=== PATIENT | male | born 1940 ===

== ENCOUNTER 2020-07-18 13:23 | Inpatient (IN) | payer MEDICARE, BC ==
[~2020-07-18] VITALS: Ht 175.3 cm; Wt 79.4 kg
[~2020-07-18 13:23] MED LIST: CEPH500C2 PO
[2020-07-18 15:35] VITALS: BP 134/70
--- NOTE | 2020-07-18 15:57 | NUR ---
Received patient at 1535 via stretcher with 2 EMT in stable condition. AOx4. no complaint of pain/discomfort. Patient DX: S/P Lumbar decompression by MD Otto 07/14. Continent on bowel and bladder. Patient complaint of right lower leg numbness happen after surgery. Patient on pain management PRN. tolerated well. Original dressing noted. Patient red dry scab noted at the back, slight sacrum redness noted. Patient on zguard for skin protection. not in distress. Patient aware of the rehab program. will continue monitor
[2020-07-18] MEDS ORDERED: AMIO200T4 PO (16:14)
[2020-07-18] MEDS ORDERED: TRAM50TA2 PO (16:28)
[2020-07-18] MEDS ORDERED: ATOR80TA PO (16:28)
[2020-07-18] MEDS ORDERED: LEVO200T9 PO (16:28)
[2020-07-18] MEDS ORDERED: EZET10TA15 PO (16:28)
[2020-07-18] MEDS ORDERED: METO25TA6 PO (16:28)
[2020-07-18] MEDS ORDERED: MULT-1168 PO (16:28)
[2020-07-18] MEDS ORDERED: FURO20TA4 PO (16:28)
[2020-07-18] MEDS ORDERED: POTA20PA40 PO (16:28)
[2020-07-18] MEDS ORDERED: OXYC1TAB12 PO (16:28)
[2020-07-18] MEDS ORDERED: CYAN1TAB17 PO (16:28)
[2020-07-18] MEDS ORDERED: PANT40TA49 PO (16:28)
[2020-07-18] MEDS ORDERED: DILT180C66 PO (16:28)
[2020-07-18] MEDS ORDERED: GABA-532 PO (16:28)
[2020-07-18] MEDS ORDERED: DOCU100C36 PO (16:28)
[2020-07-18] MEDS: ATORVASTATIN 40 MG TABLET PO SCH (20:24)
[2020-07-18 21:08] VITALS: BP 114/63
--- NOTE | 2020-07-19 03:53 | NUR ---
Awake alert and oriented x4 New admit with diagnosis of S/P lumbar decompression with Dr Otto from [facility]. VSS. Fall precautions maintained. Denies any pain at this time. Continent of bowel and bladder. Needs attended. Back incision clean dry and intact. Call zaragoza within reach. Due meds given. Tolerated well. Will monitor patient.
[2020-07-19 04:55] VITALS: BP 100/44
[2020-07-19] MEDS: PANTOPRAZOLE SODIUM 40 MG TABLET.DR PO SCH (06:10)
[2020-07-19] MEDS: LEVOTHYROXINE SODIUM 200 MCG TABLET PO SCH (06:11)
--- NOTE | 2020-07-19 06:43 | NUR ---
End of shift notes: Quiet night. No acute distress noted. VSS. Repositioned. Continent of bowel and bladder but get also have some periods of incontinence. Kept dry. Denies any pain nor any discomfort. Back dressing intact. 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 Will monitor patient.
[2020-07-19 08:00] VITALS: BP 111/58
[2020-07-19] MEDS: GABAPENTIN 100 MG CAPSULE PO SCH ×3 (08:48→16:52)
[2020-07-19] MEDS: MULTIVITAMINS,THERAPEUTIC TABLET PO SCH (08:48)
[2020-07-19] MEDS: EZETIMIBE 10 MG TABLET PO SCH (08:48)
[2020-07-19] MEDS: CEphaleXIN 500 MG CAPSULE PO SCH ×3 (08:48→16:52)
[2020-07-19] MEDS: DILTIAZEM HCL CD 120 MG CAP.SR.24H PO SCH ×2 (08:49→21:34)
[2020-07-19] MEDS: FUROSEMIDE 20 MG TABLET PO SCH (08:49)
[2020-07-19] MEDS: DOCUSATE SODIUM 100 MG CAPSULE PO SCH ×2 (08:49→16:51)
[2020-07-19] MEDS: METOPROLOL TARTRATE 25 MG TABLET PO SCH ×2 (08:50→16:52)
[2020-07-19] MEDS ORDERED: AMIODARONE HCL 200 MG TABLET PO SCH (09:00)
[2020-07-19] MEDS ORDERED: POTASSIUM CHLORIDE 20 MEQ POWDER PACKET PO SCH (09:00)
--- NOTE | 2020-07-19 12:12 | NUR ---
WOUND CARE CONSULT: PT PRESENTS WITH SURGICAL DRESSINGS TO BACK WHICH ARE DRY AND INTACT. RECOMMENDATIONS MADE FOR SKIN PROTECTION. DISCUSSED WITH NURSING STAFF. PT STATES WILL FOLLOW UP WITH HIS SURGEON. WILL SEE PRN. STEVENS IN AGREEMENT WITH PLAN OF CARE. Addendum: 07/19/20 at 1213 by RUTHIE HERNANDEZ RN Amended: Links added.
--- NOTE | 2020-07-19 12:14 | NUR ---
Family Contact: SW called the pts , Jenise ([phone]), and left a voicemail stating that she would like to discuss the pts treatment plan.
[2020-07-19] MEDS ORDERED: Z GUARD REMEDY PASTE 57 GM TUBE TOP PRN (12:15)
--- NOTE | 2020-07-19 12:15 | NUR ---
Family Contact: SW called the pts daughter, Jenise Hays ([phone]), and left a voicemail stating that she would like to discuss the pts treatment plan.
--- NOTE | 2020-07-19 12:16 | NUR ---
Senior It Engineer Note: SW asked the pt if he would need any resoruces and the pt refused resources and stated that his family can take care of him. transfer worker will continue to remain available to patient and provide ongoing supportive counseling and assess for any psychosocial needs. transfer worker will encourage patient to comply with ARU goals of care.
[2020-07-19] MEDS ORDERED: MISCELLANEOUS MED XX PRN (12:30)
[2020-07-19] MEDS ORDERED: OXYCODONE/APAP 5-325 MG TABLET PO PRN (12:45)
[2020-07-19] MEDS: TRAMADOL HCL 50 MG TABLET PO PRN ×2 (14:20→22:57)
[2020-07-19 16:01] VITALS: BP 128/66
--- NOTE | 2020-07-19 18:04 | NUR ---
Patient started therapy today. Tramadol 50mg PRN post therapy given. Patient assisted transfer from wheelchair to bed. tolerated well. Remove original dressing on back surgery as per MD Otto order. Cover with xeroform on midback surgery and cover with steri strips on right side lower back. Patient not in distress. Patient seen and examined by wound nurse. Continue off loading heels for circulation. Patient ongoing DVT pump for prophylaxis. will continue monitor
[2020-07-19 20:19] VITALS: BP 114/63
[2020-07-19] MEDS: ATORVASTATIN 40 MG TABLET PO SCH (21:35)
--- NOTE | 2020-07-19 22:47 | NUR ---
awake alert and oriented x4 needs attended. VSS. Tolerated po meds well. voiding freely. kept comfortable. medicated for pain as ordered. will monitor for relief.voiding well in the urinal.
[2020-07-20 04:57] VITALS: BP 135/70
[2020-07-20] MEDS: PANTOPRAZOLE SODIUM 40 MG TABLET.DR PO SCH (06:11)
[2020-07-20] MEDS: LEVOTHYROXINE SODIUM 200 MCG TABLET PO SCH (06:13)
--- NOTE | 2020-07-20 06:40 | NUR ---
End of shift notes: slept well most of the shift. aaox4. voided in the urinal. Needs attended. VSS. Will monitor patient.
[2020-07-20 06:41] LABS: BASOPHILS # (AUTO) 0.1 K/uL (0.0-8.0); BASOPHILS % (AUTO) 0.7 % (0.0-2.0); EOSINOPHILS # (AUTO) 0.2 K/uL (0.0-0.7); EOSINOPHILS % (AUTO) 2.6 % (0.0-7.0); HEMATOCRIT 31.5 % (36.7-47.1); LYMPHOCYTES # (AUTO) 1.3 K/uL (20.0-40.0); LYMPHOCYTES % (AUTO) 16.7 % (20.5-51.5); MEAN CORPUSCULAR HEMOGLOBIN 35.9 uug (23.8-33.4); MEAN CORPUSCULAR HGB CONC 35 g/dL (32.5-36.3); MEAN CORPUSCULAR VOLUME 102.7 fL (73.0-96.2); MONOCYTES % (AUTO) 12.1 % (0.0-11.0); NEUTROPHILS # (AUTO) 5.4 K/uL (1.8-8.9); NEUTROPHILS % (AUTO) 67.9 % (38.5-71.5); PLATELET COUNT (AUTO) 195 K/uL (152-348); RED BLOOD CELL COUNT(AUTO) 3.07 MIL/uL (4.06-5.63); WHITE BLOOD COUNT (AUTO) 7.9 K/uL (3.6-10.2)
[2020-07-20 06:47] LABS: CREATININE 0.9 mg/dL (0.6-1.3); PHOSPHOROUS 3.8 mg/dL (2.5-4.9); POTASSIUM 3.8 mmol/L (3.5-5.1)
[2020-07-20 08:00] VITALS: BP 141/63
[2020-07-20] MEDS: DOCUSATE SODIUM 100 MG CAPSULE PO SCH ×3 (08:08→20:49)
[2020-07-20] MEDS: DILTIAZEM HCL CD 120 MG CAP.SR.24H PO SCH ×2 (08:08→20:49)
[2020-07-20] MEDS: GABAPENTIN 100 MG CAPSULE PO SCH ×3 (08:08→16:35)
[2020-07-20] MEDS: FUROSEMIDE 20 MG TABLET PO SCH (08:09)
[2020-07-20] MEDS: MULTIVITAMINS,THERAPEUTIC TABLET PO SCH (08:09)
[2020-07-20] MEDS: POTASSIUM CHLORIDE 20 MEQ TAB.PRT.SR PO SCH (08:09)
[2020-07-20] MEDS: EZETIMIBE 10 MG TABLET PO SCH (08:09)
[2020-07-20] MEDS: METOPROLOL TARTRATE 25 MG TABLET PO SCH ×2 (08:10→16:36)
[2020-07-20] MEDS: AMIODARONE HCL 200 MG TABLET PO SCH (08:13)
[2020-07-20 15:22] VITALS: BP 100/52
--- NOTE | 2020-07-20 15:37 | NUR ---
patient is alert, oriented x4, verbally responsive, no sob, resp even nonlabored, skin warm and dry to touch, no distress noted, participated in PT,OT services, tolerated well.
[2020-07-20] MEDS: ATORVASTATIN 40 MG TABLET PO SCH (20:48)
[2020-07-20 21:21] VITALS: BP 128/66
[2020-07-20] MEDS: diphenhydrAMINE 25 MG CAP PO SCH (22:24)
--- NOTE | 2020-07-20 22:27 | NUR ---
OOB in chair upon initial rounds. aaox4 no acute distress noted. VSS. All due meds given. Tolerated well. Voiding well in the urinal. Assisted back to bed with minimal assist. complained of unable to sleep.Dr Sykes made aware. Benadryl 25mg po given as ordered. Will monitor patient. Fall precautions maintained. Siderails up for safety. Call zaragoza within reach.
[2020-07-21 05:13] VITALS: BP 98/57
[2020-07-21] MEDS: PANTOPRAZOLE SODIUM 40 MG TABLET.DR PO SCH (06:06)
[2020-07-21] MEDS: LEVOTHYROXINE SODIUM 200 MCG TABLET PO SCH (06:07)
--- NOTE | 2020-07-21 06:37 | NUR ---
End of shift notes: Slept well most of the shift. Denies any pain nor any discomfort. Needs attended. VSS. Voiding freely.No acute distress noted. Will monitor patient.
[2020-07-21 07:30] VITALS: BP 105/63
[2020-07-21] MEDS: GABAPENTIN 100 MG CAPSULE PO SCH ×3 (08:01→16:18)
[2020-07-21] MEDS: POTASSIUM CHLORIDE 20 MEQ TAB.PRT.SR PO SCH (08:01)
[2020-07-21] MEDS: MULTIVITAMINS,THERAPEUTIC TABLET PO SCH (08:01)
[2020-07-21] MEDS: DOCUSATE SODIUM 100 MG CAPSULE PO SCH ×2 (08:01→20:31)
[2020-07-21] MEDS: EZETIMIBE 10 MG TABLET PO SCH (08:01)
[2020-07-21] MEDS: FUROSEMIDE 20 MG TABLET PO SCH (08:02)
[2020-07-21] MEDS: DILTIAZEM HCL CD 120 MG CAP.SR.24H PO SCH ×2 (09:00→20:31)
[2020-07-21] MEDS: METOPROLOL TARTRATE 25 MG TABLET PO SCH ×2 (09:00→16:19)
[2020-07-21] MEDS: AMIODARONE HCL 200 MG TABLET PO SCH (09:11)
--- NOTE | 2020-07-21 13:43 | NUR ---
INTERDISCIPLINARY TEAM CONFERENCE
--- NOTE | 2020-07-21 14:32 | NUR ---
INDIVIDUALIZED PLAN OF CARE
[2020-07-21 15:54] VITALS: BP 97/56
[2020-07-21] MEDS: APIXABAN 5 MG TABLET PO SCH (16:37)
--- NOTE | 2020-07-21 20:00 | NUR ---
RECEIVED PATIENT AWAKE IN BED. A/O X4. DENIES ANY PAIN OR DISCOMFORT. NO RESP. DISTRESS NOTED. ON RA. VS WNL. CALL LIGHT IN REACH. ALL NEEDS ATTENDED. WILL CONTINUE TO MONITOR AND ASSESS.
[2020-07-21] MEDS: ATORVASTATIN 40 MG TABLET PO SCH (20:31)
[2020-07-21] MEDS: diphenhydrAMINE 25 MG CAP PO SCH (21:11)
[2020-07-21 21:30] VITALS: BP 118/64
[2020-07-22 05:17] VITALS: BP 116/60
[2020-07-22] MEDS: PANTOPRAZOLE SODIUM 40 MG TABLET.DR PO SCH (06:28)
[2020-07-22] MEDS: LEVOTHYROXINE SODIUM 200 MCG TABLET PO SCH (06:29)
--- NOTE | 2020-07-22 07:00 | NUR ---
patient is alert, oriented x4, verbally responsive, no sob, no distress noted,CALL LIGHT WITH IN REACH
--- NOTE | 2020-07-22 07:10 | NUR ---
Pt slept intermittently through the night. Pt is awake and denies any acute distress. V/S stable on room air. Dressing is intact with no s/s of infection. Comfort care and needs attended. Fall precaution maintained. Safety measures in place. Bed low and locked in position. Call light within reach. Will endorse to the oncoming nurse accordingly.
[2020-07-22 08:00] VITALS: BP 113/57
[2020-07-22] MEDS: DOCUSATE SODIUM 100 MG CAPSULE PO SCH ×2 (09:58→20:21)
[2020-07-22] MEDS: EZETIMIBE 10 MG TABLET PO SCH (09:58)
[2020-07-22] MEDS: FUROSEMIDE 20 MG TABLET PO SCH (09:59)
[2020-07-22] MEDS: DILTIAZEM HCL CD 120 MG CAP.SR.24H PO SCH ×2 (09:59→20:22)
[2020-07-22] MEDS: MULTIVITAMINS,THERAPEUTIC TABLET PO SCH (10:00)
[2020-07-22] MEDS: POTASSIUM CHLORIDE 20 MEQ TAB.PRT.SR PO SCH (10:00)
[2020-07-22] MEDS: GABAPENTIN 100 MG CAPSULE PO SCH ×3 (10:00→17:47)
[2020-07-22] MEDS: METOPROLOL TARTRATE 25 MG TABLET PO SCH ×2 (10:01→17:00)
[2020-07-22] MEDS: APIXABAN 5 MG TABLET PO SCH ×2 (10:02→17:48)
[2020-07-22 20:00] VITALS: BP 124/71
--- NOTE | 2020-07-22 20:00 | NUR ---
Received patient in wheelchair.Oriented x4.No s/s of distress , no c/o pain at this time.Due meds given as ordered.Call light with in reach.Continue safety measures.
[2020-07-22] MEDS: diphenhydrAMINE 25 MG CAP PO SCH (20:20)
[2020-07-22] MEDS: ATORVASTATIN 40 MG TABLET PO SCH (20:23)
[2020-07-23 04:00] VITALS: BP 117/66
[2020-07-23] MEDS: PANTOPRAZOLE SODIUM 40 MG TABLET.DR PO SCH (06:19)
[2020-07-23] MEDS: LEVOTHYROXINE SODIUM 200 MCG TABLET PO SCH (06:21)
[2020-07-23 08:00] VITALS: BP 118/60
[2020-07-23] MEDS: EZETIMIBE 10 MG TABLET PO SCH (09:15)
[2020-07-23] MEDS: FUROSEMIDE 20 MG TABLET PO SCH (09:15)
[2020-07-23] MEDS: POTASSIUM CHLORIDE 20 MEQ TAB.PRT.SR PO SCH (09:15)
[2020-07-23] MEDS: DOCUSATE SODIUM 100 MG CAPSULE PO SCH ×2 (09:15→20:30)
[2020-07-23] MEDS: METOPROLOL TARTRATE 25 MG TABLET PO SCH ×2 (09:18→16:33)
[2020-07-23] MEDS: GABAPENTIN 100 MG CAPSULE PO SCH ×3 (09:18→16:33)
[2020-07-23] MEDS: MULTIVITAMINS,THERAPEUTIC TABLET PO SCH (09:18)
[2020-07-23] MEDS: DILTIAZEM HCL CD 120 MG CAP.SR.24H PO SCH ×2 (09:18→20:31)
[2020-07-23] MEDS: APIXABAN 5 MG TABLET PO SCH ×2 (09:19→16:35)
[2020-07-23 16:25] VITALS: BP 125/59
--- NOTE | 2020-07-23 18:36 | NUR ---
NO CHANGES NOTED DURING SHIFT, NO ACUTE DISTRESS NOTED
--- NOTE | 2020-07-23 19:30 | NUR ---
RECEIVED PT AWAKE, ALERT AND [id number] ON HIS WHEELCHAIR. PT SHOWS NO ACUTE DISTRESS. IV INTACT. SAFETY AND COMFORT PROVIDED. WILL CONTINUE TO MONITOR.
[2020-07-23 20:24] VITALS: BP 115/58
[2020-07-23] MEDS: diphenhydrAMINE 25 MG CAP PO SCH (20:30)
[2020-07-23] MEDS: ATORVASTATIN 40 MG TABLET PO SCH (20:32)
[2020-07-24 05:05] VITALS: BP 110/58
[2020-07-24] MEDS: LEVOTHYROXINE SODIUM 200 MCG TABLET PO SCH (06:16)
[2020-07-24] MEDS: PANTOPRAZOLE SODIUM 40 MG TABLET.DR PO SCH (06:16)
[2020-07-24] MEDS: AMIODARONE HCL 200 MG TABLET PO SCH (06:41)
--- NOTE | 2020-07-24 06:48 | NUR ---
PT SLEPT COMFORTABLY. PT IN NO ACUTE DISTRESS. PRESCRIBED MEDICATION GIVEN AND PT TOLERATED IT WELL. SAFETY AND COMFORT PROVIDED. ALL NEEDS ARE MET. WILL ENDORSE TO INCOMING NURSE FOR CONTINUITY OF CARE.
[2020-07-24 08:00] VITALS: BP 102/55
[2020-07-24] MEDS: METOPROLOL TARTRATE 25 MG TABLET PO SCH ×2 (08:21→16:27)
[2020-07-24] MEDS: POTASSIUM CHLORIDE 20 MEQ TAB.PRT.SR PO SCH (08:21)
[2020-07-24] MEDS: DOCUSATE SODIUM 100 MG CAPSULE PO SCH ×2 (08:21→20:41)
[2020-07-24] MEDS: DILTIAZEM HCL CD 120 MG CAP.SR.24H PO SCH ×2 (08:26→20:41)
[2020-07-24] MEDS: FUROSEMIDE 20 MG TABLET PO SCH (08:27)
[2020-07-24] MEDS: EZETIMIBE 10 MG TABLET PO SCH (08:27)
[2020-07-24] MEDS: GABAPENTIN 100 MG CAPSULE PO SCH ×3 (08:27→16:27)
[2020-07-24] MEDS: MULTIVITAMINS,THERAPEUTIC TABLET PO SCH (08:27)
[2020-07-24] MEDS: APIXABAN 5 MG TABLET PO SCH ×2 (08:32→16:26)
--- NOTE | 2020-07-24 09:48 | NUR ---
RECEIVED PATIENT IN BED, AWAKE. A0X4 IN STABLE CONDITION. NO C/O OF PAIN/DISCOMFORT. PATIENT CONTINUE S/P SURGERY OPEN TO AIR. MILD REDNESS NOTED. STILL INTACT. PATIENT WILL FF UP WITH SX ON AUG 01. OFF FROM THERAPY TODAY. CONTINUE ASSISTING IN AMBULATION WITH WHEELCHAIR/WALKER TO BATHROOM. WILL CONTINUE MONITOR
[2020-07-24 16:00] VITALS: BP 117/59
[2020-07-24 20:00] VITALS: BP 111/57
[2020-07-24] MEDS: ATORVASTATIN 40 MG TABLET PO SCH (20:40)
[2020-07-24] MEDS: diphenhydrAMINE 25 MG CAP PO SCH (20:42)
[2020-07-24] MEDS: TRAMADOL HCL 50 MG TABLET PO PRN (21:09)
--- NOTE | 2020-07-25 02:54 | NUR ---
OOB in chair at beginning of the shift. AAOx4 Needs attended. Continent of bowel and bladder. Voiding in the urinal. Assisted back in bed. All due meds given. Tolerated po meds well. No acute distress noted. Will monitor patient.
[2020-07-25 04:00] VITALS: BP 112/62
[2020-07-25] MEDS: PANTOPRAZOLE SODIUM 40 MG TABLET.DR PO SCH (06:19)
[2020-07-25] MEDS: AMIODARONE HCL 200 MG TABLET PO SCH (06:20)
[2020-07-25] MEDS: LEVOTHYROXINE SODIUM 200 MCG TABLET PO SCH (06:21)
--- NOTE | 2020-07-25 06:51 | NUR ---
End of shift notes: Slept at short intervals. No acute ditress noted. Needs attended. VSS. All due meds given. Voiding well. No further complaints presented during shift.
[2020-07-25 07:30] VITALS: BP 109/63
[2020-07-25] MEDS: DOCUSATE SODIUM 100 MG CAPSULE PO SCH ×2 (08:48→20:38)
[2020-07-25] MEDS: FUROSEMIDE 20 MG TABLET PO SCH (08:49)
[2020-07-25] MEDS: GABAPENTIN 100 MG CAPSULE PO SCH ×3 (08:49→16:41)
[2020-07-25] MEDS: MULTIVITAMINS,THERAPEUTIC TABLET PO SCH (08:49)
[2020-07-25] MEDS: POTASSIUM CHLORIDE 20 MEQ TAB.PRT.SR PO SCH (08:49)
[2020-07-25] MEDS: EZETIMIBE 10 MG TABLET PO SCH (08:49)
[2020-07-25] MEDS: APIXABAN 5 MG TABLET PO SCH ×2 (08:53→16:40)
[2020-07-25] MEDS: METOPROLOL TARTRATE 25 MG TABLET PO SCH ×2 (09:00→16:41)
[2020-07-25] MEDS: DILTIAZEM HCL CD 120 MG CAP.SR.24H PO SCH ×2 (09:00→20:57)
--- NOTE | 2020-07-25 11:04 | NUR ---
Received patient awake in bed in stable condition. Participates well in therapy. no complaint of pain/discomfort noted. not in distress. Continue wound care and monitoring. Assisting patient to bathroom and when needed. will continue monitor
[2020-07-25 15:58] VITALS: BP 122/62
--- NOTE | 2020-07-25 19:30 | NUR ---
Report received. Patient AAO. NAD noted.
[2020-07-25 20:00] VITALS: BP 113/61
[2020-07-25] MEDS: ATORVASTATIN 40 MG TABLET PO SCH (20:37)
--- NOTE | 2020-07-25 20:55 | NUR ---
C/o back pains. Incision sites dry with redness. Steri strips intact to one site. Medicated with Ultram per patient's request.
[2020-07-25] MEDS: TRAMADOL HCL 50 MG TABLET PO PRN (20:58)
[2020-07-25] MEDS: diphenhydrAMINE 25 MG CAP PO SCH (21:57)
[2020-07-26 04:00] VITALS: BP_SYST 107; BP_SYST 138; BP_DIAS 58; BP_DIAS 66
[2020-07-26] MEDS: LEVOTHYROXINE SODIUM 200 MCG TABLET PO SCH (06:26)
[2020-07-26] MEDS: PANTOPRAZOLE SODIUM 40 MG TABLET.DR PO SCH (06:27)
[2020-07-26] MEDS: AMIODARONE HCL 200 MG TABLET PO SCH (06:27)
--- NOTE | 2020-07-26 06:55 | NUR ---
Up in chair with little assistance. Slept well during the shift. VS stable.
[2020-07-26 08:00] VITALS: BP 113/60
[2020-07-26] MEDS: METOPROLOL TARTRATE 25 MG TABLET PO SCH ×2 (09:00→16:37)
[2020-07-26] MEDS ORDERED: NEOMY/BACITRAC/POLYMI OINT 28.35 GM TUBE TOP SCH (09:00)
[2020-07-26] MEDS ORDERED: HYDROGEN PEROXIDE 3% 118 ML BOTTLE TOP SCH (09:00)
[2020-07-26] MEDS: DOCUSATE SODIUM 100 MG CAPSULE PO SCH ×2 (10:44→20:43)
[2020-07-26] MEDS: MULTIVITAMINS,THERAPEUTIC TABLET PO SCH (10:52)
[2020-07-26] MEDS: POTASSIUM CHLORIDE 20 MEQ TAB.PRT.SR PO SCH (10:52)
[2020-07-26] MEDS: FUROSEMIDE 20 MG TABLET PO SCH (10:52)
[2020-07-26] MEDS: GABAPENTIN 100 MG CAPSULE PO SCH ×3 (10:52→16:37)
[2020-07-26] MEDS: EZETIMIBE 10 MG TABLET PO SCH (10:53)
[2020-07-26] MEDS: DILTIAZEM HCL CD 120 MG CAP.SR.24H PO SCH ×2 (10:56→20:43)
[2020-07-26] MEDS: APIXABAN 5 MG TABLET PO SCH ×2 (10:56→16:38)
--- NOTE | 2020-07-26 11:30 | NUR ---
Received patient in room, sitting up on w/c , No acute distress noted. Patient is AAO x 4 able to express needs. NO complains of pain. Due medications administered as ordered and tolerated well. Pt. on continuos PT/OT therapy; BRP. Incision site on mid-lower back intact with redness/pinkish noted around incision area; With wound treatment as ordered. 2nd incision site on right lower back with steri-strips on and intact. Skin kept clean and dry. Needs attended, safety measures in place, call light left within easy reach and will continue with care.
[2020-07-26 16:27] VITALS: BP 120/62
--- NOTE | 2020-07-26 18:51 | NUR ---
Patient sitting up on w/c in stable condition and talking to family on the phone at this time. Will continue with care.
--- NOTE | 2020-07-26 19:26 | NUR ---
Endorsed to next shift and will continue with care.
[2020-07-26 20:38] VITALS: BP 101/50
[2020-07-26] MEDS: ATORVASTATIN 40 MG TABLET PO SCH (20:44)
[2020-07-26] MEDS: diphenhydrAMINE 25 MG CAP PO SCH (20:44)
--- NOTE | 2020-07-26 21:45 | NUR ---
Received patient sitting up on wheelchair ,alert x4.On RA.No s/s of distress noted.c/o Rt leg sharp pain.Medicated with PRN med with relief.Due meds given as ordered.Call light with in reach.Continue safety measures.
[2020-07-26] MEDS: TRAMADOL HCL 50 MG TABLET PO PRN (21:49)
[2020-07-27 05:18] VITALS: BP 105/56
[2020-07-27] MEDS: LEVOTHYROXINE SODIUM 200 MCG TABLET PO SCH (06:04)
[2020-07-27] MEDS: PANTOPRAZOLE SODIUM 40 MG TABLET.DR PO SCH (06:04)
[2020-07-27] MEDS: AMIODARONE HCL 200 MG TABLET PO SCH (06:27)
--- NOTE | 2020-07-27 06:30 | NUR ---
Patient awake sitting up on wheelchair, denies pain or discomfort. No s/s of distress noted.Slept through out the night.Call light with in reach.Will endorse to oncoming AM shift.
[2020-07-27 06:35] LABS: BASOPHILS # (AUTO) 0.1 K/uL (0.0-8.0); BASOPHILS % (AUTO) 1.7 % (0.0-2.0); EOSINOPHILS # (AUTO) 0.3 K/uL (0.0-0.7); EOSINOPHILS % (AUTO) 3.5 % (0.0-7.0); HEMATOCRIT 33.8 % (36.7-47.1); HEMOGLOBIN 11.8 g/dL (12.5-16.3); LYMPHOCYTES # (AUTO) 1.5 K/uL (20.0-40.0); LYMPHOCYTES % (AUTO) 20.2 % (20.5-51.5); MEAN CORPUSCULAR HEMOGLOBIN 35.5 uug (23.8-33.4); MEAN CORPUSCULAR HGB CONC 35 g/dL (32.5-36.3); MEAN CORPUSCULAR VOLUME 101.7 fL (73.0-96.2); MONOCYTES # (AUTO) 0.7 K/uL (2.0-10.0); MONOCYTES % (AUTO) 9.5 % (0.0-11.0); NEUTROPHILS # (AUTO) 4.9 K/uL (1.8-8.9); NEUTROPHILS % (AUTO) 65.1 % (38.5-71.5); PLATELET COUNT (AUTO) 336 K/uL (152-348); RED BLOOD CELL COUNT(AUTO) 3.33 MIL/uL (4.06-5.63); WHITE BLOOD COUNT (AUTO) 7.6 K/uL (3.6-10.2)
[2020-07-27 07:02] LABS: THYROID STIMULATING HORMONE 1.725 mIU/mL (0.358-3.740)
[2020-07-27 07:37] VITALS: BP 101/52
[2020-07-27 07:47] LABS: BILIRUBIN,TOTAL 0.4 mg/dL (0.2-1.0); MAGNESIUM 2.2 mg/dL (1.8-2.4); PHOSPHOROUS 4.4 mg/dL (2.5-4.9); POTASSIUM 4.2 mmol/L (3.5-5.1); TOTAL PROTEIN, SERUM 6.2 g/dL (6.4-8.2)
--- NOTE | 2020-07-27 07:50 | NUR ---
Received patient, awake, alert and verbally responsive. No signs of distress noted. No SOB. Afebrile. No complain of pain or discomfort. kept the call light within easy reach. will continue to monitor.
[2020-07-27] MEDS: DOCUSATE SODIUM 100 MG CAPSULE PO SCH ×2 (08:32→21:13)
[2020-07-27] MEDS: MULTIVITAMINS,THERAPEUTIC TABLET PO SCH (08:32)
[2020-07-27] MEDS: GABAPENTIN 100 MG CAPSULE PO SCH ×3 (08:32→17:03)
[2020-07-27] MEDS: FUROSEMIDE 20 MG TABLET PO SCH (08:33)
[2020-07-27] MEDS: EZETIMIBE 10 MG TABLET PO SCH (08:33)
[2020-07-27] MEDS: METOPROLOL TARTRATE 25 MG TABLET PO SCH ×2 (08:33→17:03)
[2020-07-27] MEDS: DILTIAZEM HCL CD 120 MG CAP.SR.24H PO SCH ×2 (08:33→21:14)
[2020-07-27] MEDS: POTASSIUM CHLORIDE 20 MEQ TAB.PRT.SR PO SCH (08:35)
[2020-07-27] MEDS: APIXABAN 5 MG TABLET PO SCH ×2 (08:35→17:04)
[2020-07-27] MEDS: HYDROGEN PEROXIDE 3% 118 ML BOTTLE TOP SCH (10:14)
[2020-07-27] MEDS: NEOMY/BACITRAC/POLYMI OINT 28.35 GM TUBE TOP SCH (10:15)
[2020-07-27 15:01] VITALS: BP 116/57
--- NOTE | 2020-07-27 18:05 | NUR ---
Patient is alert, awake and verbally responsive. No signs of distress noted. No SOB. No complain of Pain or discomfort. PT/OT tolerated well. All due medications given as ordered. Wound skin care rendered. kept clean and comfortable. Will endorse to Oncoming Nurse.
--- NOTE | 2020-07-27 19:45 | NUR ---
Received patient awake, alert, up in a wheelchair, reading book. Denies any pain/discomforts at this time. Safety measure and fall prevention maintained. Continue care as planned.
[2020-07-27 20:12] VITALS: BP 137/50
[2020-07-27] MEDS: diphenhydrAMINE 25 MG CAP PO SCH (21:13)
[2020-07-27] MEDS: ATORVASTATIN 40 MG TABLET PO SCH (21:14)
[2020-07-28 04:15] VITALS: BP 103/54
[2020-07-28] MEDS: PANTOPRAZOLE SODIUM 40 MG TABLET.DR PO SCH (06:13)
[2020-07-28] MEDS: LEVOTHYROXINE SODIUM 200 MCG TABLET PO SCH (06:14)
--- NOTE | 2020-07-28 06:18 | NUR ---
Shift End Report: Slept well. No complaint presented all night. No fall/injury. All needs attended and met. No significant event reported. Continue current rehab plan of care. VS stable.
--- NOTE | 2020-07-28 08:00 | NUR ---
Received patient sitting up on w/c, Pt. is AAO x 4. No acute distress noted. Vital signs stable. NO c/o pain at this time and will continue with care.
[2020-07-28 08:26] VITALS: BP 111/55
[2020-07-28] MEDS: DOCUSATE SODIUM 100 MG CAPSULE PO SCH ×2 (09:39→21:02)
[2020-07-28] MEDS: EZETIMIBE 10 MG TABLET PO SCH (09:39)
[2020-07-28] MEDS: DILTIAZEM HCL CD 120 MG CAP.SR.24H PO SCH ×2 (09:40→21:00)
[2020-07-28] MEDS: POTASSIUM CHLORIDE 20 MEQ TAB.PRT.SR PO SCH (09:40)
[2020-07-28] MEDS: GABAPENTIN 100 MG CAPSULE PO SCH ×3 (09:40→16:15)
[2020-07-28] MEDS: MULTIVITAMINS,THERAPEUTIC TABLET PO SCH (09:40)
[2020-07-28] MEDS: METOPROLOL TARTRATE 25 MG TABLET PO SCH ×2 (09:40→16:15)
[2020-07-28] MEDS: FUROSEMIDE 20 MG TABLET PO SCH (09:40)
[2020-07-28] MEDS: APIXABAN 5 MG TABLET PO SCH ×2 (09:45→16:16)
[2020-07-28] MEDS: AMIODARONE HCL 200 MG TABLET PO SCH (09:45)
[2020-07-28] MEDS: NEOMY/BACITRAC/POLYMI OINT 28.35 GM TUBE TOP SCH (09:50)
[2020-07-28] MEDS: HYDROGEN PEROXIDE 3% 118 ML BOTTLE TOP SCH (09:50)
--- NOTE | 2020-07-28 10:45 | NUR ---
All due morning medications administered as ordered and scheduled and tolerated well. Patient very compliant with care. On continues PT/OT therapy as outlined. Incision site on Mid lower and right lower back intact and dry, red/pinkish noted around incision site; treatment on going. Skin kept clean and dry. Needs attended, safety measures in place and will continue with care.
--- NOTE | 2020-07-28 14:05 | NUR ---
INTERDISCIPLINARY TEAM CONFERENCE
[2020-07-28 16:04] VITALS: BP 110/55
--- NOTE | 2020-07-28 18:51 | NUR ---
All needs attended, safety measures in place, all due mediations administered as ordered and scheduled and tolerated well. Call light left at bed side and will continue with care.
--- NOTE | 2020-07-28 19:05 | NUR ---
End of shift report given to pm nurse.
--- NOTE | 2020-07-28 19:20 | NUR ---
Awake, up in a wheelchair, talking in his cell phone. Very pleasant, jolly person. Denies any pain/discomforts at thsi time. Safety measures and fall prevention maintained. Continue care as planned.
[2020-07-28 20:17] VITALS: BP 103/52
[2020-07-28] MEDS: ATORVASTATIN 40 MG TABLET PO SCH (21:00)
[2020-07-28] MEDS: diphenhydrAMINE 25 MG CAP PO SCH (21:02)
[2020-07-28] MEDS: TRAMADOL HCL 50 MG TABLET PO PRN (21:06)
--- NOTE | 2020-07-28 21:19 | NUR ---
SBP 103/52. Diltiazem not given. Patient made aware. Patient denies any s/s of hypotension. Incision care done on his back, tolerated well.
[2020-07-29 05:43] VITALS: BP 112/62
[2020-07-29] MEDS: PANTOPRAZOLE SODIUM 40 MG TABLET.DR PO SCH (06:13)
[2020-07-29] MEDS: LEVOTHYROXINE SODIUM 200 MCG TABLET PO SCH (06:14)
--- NOTE | 2020-07-29 06:40 | NUR ---
Shift End Report: VS stable. Slept well. Medicated once for pain with relief. No further complaint presented. All needs attended and met. No significant event reported. Continue current rehab plan of care.
--- NOTE | 2020-07-29 07:30 | NUR ---
Received patient resting in bed, no sign of distress noted at this time. Patient has no IV access and is awake, alert and oriented time 4. Patient denies any pain at this time. Safety precautions are in place, bed is in the lowest position and locked with call light and belongings within reach. Will continue to monitor.
[2020-07-29 08:00] VITALS: BP 100/56
[2020-07-29] MEDS: METOPROLOL TARTRATE 25 MG TABLET PO SCH ×2 (09:00→17:40)
[2020-07-29] MEDS: DOCUSATE SODIUM 100 MG CAPSULE PO SCH ×2 (09:40→20:20)
[2020-07-29] MEDS: POTASSIUM CHLORIDE 20 MEQ TAB.PRT.SR PO SCH (09:40)
[2020-07-29] MEDS: GABAPENTIN 100 MG CAPSULE PO SCH ×4 (09:40→17:36)
[2020-07-29] MEDS: EZETIMIBE 10 MG TABLET PO SCH (09:40)
[2020-07-29] MEDS: FUROSEMIDE 20 MG TABLET PO SCH (09:40)
[2020-07-29] MEDS: MULTIVITAMINS,THERAPEUTIC TABLET PO SCH (09:40)
[2020-07-29] MEDS: DILTIAZEM HCL CD 120 MG CAP.SR.24H PO SCH ×2 (09:42→20:20)
[2020-07-29] MEDS: APIXABAN 5 MG TABLET PO SCH ×2 (09:44→17:41)
[2020-07-29] MEDS: NEOMY/BACITRAC/POLYMI OINT 28.35 GM TUBE TOP SCH (09:45)
[2020-07-29] MEDS: HYDROGEN PEROXIDE 3% 118 ML BOTTLE TOP SCH (09:45)
[2020-07-29 16:16] VITALS: BP 111/53
--- NOTE | 2020-07-29 18:57 | NUR ---
Patient is resting in bed . No distress noted at this time. Gave medication as ordered. Provided comfort measures. Safety precautions observed, bed in lowest position and locked with call light and belongings within reach. Will endorse to oncoming nurse.
--- NOTE | 2020-07-29 19:40 | NUR ---
Up in wheelchair, watching TV. Denies any pain/discomforts at this time. Safety measures and gall prevention maintained. Continue care as planned.
[2020-07-29 20:00] VITALS: BP 115/56
[2020-07-29] MEDS: ATORVASTATIN 40 MG TABLET PO SCH (20:20)
[2020-07-29] MEDS: diphenhydrAMINE 25 MG CAP PO SCH (20:20)
[2020-07-30 04:00] VITALS: BP 120/58
[2020-07-30] MEDS: PANTOPRAZOLE SODIUM 40 MG TABLET.DR PO SCH (06:16)
[2020-07-30] MEDS: LEVOTHYROXINE SODIUM 200 MCG TABLET PO SCH (06:16)
--- NOTE | 2020-07-30 06:58 | NUR ---
Shift End Report: Vs stable. Medicated once for pain with relief. No further complaint presented. All needs attended and met. No significant event reported. Continue current rehab plan of care. Slept well.
[2020-07-30 08:00] VITALS: BP 115/61
[2020-07-30] MEDS: EZETIMIBE 10 MG TABLET PO SCH (09:18)
[2020-07-30] MEDS: DOCUSATE SODIUM 100 MG CAPSULE PO SCH ×2 (09:19→20:15)
[2020-07-30] MEDS: MULTIVITAMINS,THERAPEUTIC TABLET PO SCH (09:19)
[2020-07-30] MEDS: FUROSEMIDE 20 MG TABLET PO SCH (09:19)
[2020-07-30] MEDS: METOPROLOL TARTRATE 25 MG TABLET PO SCH ×2 (09:19→17:10)
[2020-07-30] MEDS: DILTIAZEM HCL CD 120 MG CAP.SR.24H PO SCH ×2 (09:20→20:16)
[2020-07-30] MEDS: GABAPENTIN 100 MG CAPSULE PO SCH ×3 (09:20→17:09)
[2020-07-30] MEDS: APIXABAN 5 MG TABLET PO SCH ×2 (09:25→17:09)
[2020-07-30] MEDS: POTASSIUM CHLORIDE 20 MEQ TAB.PRT.SR PO SCH (09:26)
[2020-07-30] MEDS: NEOMY/BACITRAC/POLYMI OINT 28.35 GM TUBE TOP SCH (09:27)
[2020-07-30] MEDS: HYDROGEN PEROXIDE 3% 118 ML BOTTLE TOP SCH (09:27)
[2020-07-30 16:00] VITALS: BP 113/62
--- NOTE | 2020-07-30 18:03 | NUR ---
PATIENT IS ALERT, ORIENTED X4,NO DISTRESS NOTED DURING SHIFT, NEEDS MET TIMELY, INCISION SITE ON THE BACK STILL NOTED WITH REDNESS, HOWEVER NO DISCHARGE NOTED, NO ODOR NOTED, INCISION SITE IS CLEAN AND DRY. CONTINUE TO MONITOR FOR INCISION SITE.
[2020-07-30 20:00] VITALS: BP 116/60
[2020-07-30] MEDS: diphenhydrAMINE 25 MG CAP PO SCH (20:15)
[2020-07-30] MEDS: ATORVASTATIN 40 MG TABLET PO SCH (20:15)
--- NOTE | 2020-07-30 20:34 | NUR ---
Awake, Up in a wheelchair. No complaint presented. Very pleasant and conversant. Safety measures and fall prevention maintained. Wound care don on back incisions, tolerated well. Continue care as planned.
[2020-07-31 04:00] VITALS: BP 114/58
--- NOTE | 2020-07-31 05:45 | NUR ---
Shift End Report: Slept good. No complaint presented all night. All needs attended and met. Continue current rehab plan of care. VS stable.
[2020-07-31] MEDS: PANTOPRAZOLE SODIUM 40 MG TABLET.DR PO SCH (06:21)
[2020-07-31] MEDS: LEVOTHYROXINE SODIUM 200 MCG TABLET PO SCH (06:21)
[2020-07-31 07:30] VITALS: BP 112/66
[2020-07-31] MEDS: FUROSEMIDE 20 MG TABLET PO SCH (08:46)
[2020-07-31] MEDS: MULTIVITAMINS,THERAPEUTIC TABLET PO SCH (08:46)
[2020-07-31] MEDS: DOCUSATE SODIUM 100 MG CAPSULE PO SCH ×2 (08:46→20:28)
[2020-07-31] MEDS: POTASSIUM CHLORIDE 20 MEQ TAB.PRT.SR PO SCH (08:46)
[2020-07-31] MEDS: METOPROLOL TARTRATE 25 MG TABLET PO SCH ×2 (08:50→17:17)
[2020-07-31] MEDS: GABAPENTIN 100 MG CAPSULE PO SCH ×3 (08:50→17:12)
[2020-07-31] MEDS: DILTIAZEM HCL CD 120 MG CAP.SR.24H PO SCH ×2 (08:50→20:34)
[2020-07-31] MEDS: EZETIMIBE 10 MG TABLET PO SCH (08:51)
[2020-07-31] MEDS: HYDROGEN PEROXIDE 3% 118 ML BOTTLE TOP SCH (08:51)
[2020-07-31] MEDS: NEOMY/BACITRAC/POLYMI OINT 28.35 GM TUBE TOP SCH (08:51)
[2020-07-31] MEDS: AMIODARONE HCL 200 MG TABLET PO SCH (08:56)
[2020-07-31] MEDS: APIXABAN 5 MG TABLET PO SCH ×2 (08:59→17:12)
--- NOTE | 2020-07-31 09:56 | NUR ---
Received patient sitting comfortably in wheelchair. AOx4 in stable condition. no complaint of pain/discomfort noted. not in distress. Patient continue participates in therapy for increase strenght and increase endurance with good effect. will continue monitor
[2020-07-31 15:53] VITALS: BP 106/55
--- NOTE | 2020-07-31 17:04 | NUR ---
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 will endorse
[2020-07-31 20:00] VITALS: BP 104/54
[2020-07-31] MEDS: diphenhydrAMINE 25 MG CAP PO SCH (20:28)
[2020-07-31] MEDS: ATORVASTATIN 40 MG TABLET PO SCH (20:28)
--- NOTE | 2020-07-31 20:51 | NUR ---
Received pt sitting in the wheelchair and playing [employer]. AAO x4. No acute distress noted. Denies pain/ discomfort. Held cardizem due to BP of 104/54, HR of 62. Other due meds given as ordered. Pt to be discharge tomorrow. TMS needs to be done. Safety measures maintained. Call light and personal items within reach. Will continue to monitor.
--- NOTE | 2020-07-31 21:28 | NUR ---
Change of assignment. Report given to charge nurse Paige.
--- NOTE | 2020-07-31 22:00 | NUR ---
RECD PT IN APPARENTLY FAIR CONDITION, SITTED ON A BEDSIDE CHAIR, ALERT ,ORIENTED X4, NO COMPLAINTS PRESENTED.LOOKING FORWARD TO DISCHARGE TOMORROW,
--- NOTE | 2020-07-31 22:15 | NUR ---
VITAL SIGNS TAKEN AND RECORDED, FOLLOWS 115/62 61, 18 99%AND 98 . CARDIZEM DOSE FOR THE NITE HELD,WILL RECHECK VITALS AT A LATER TIME. RESTING IN BED.WATCHING TV.
[2020-08-01 04:00] VITALS: BP 133/74
--- NOTE | 2020-08-01 07:14 | NUR ---
report givento am shift nurse, pt in apparently fair condition, uneventful nite.
[2020-08-01 07:30] VITALS: BP 102/69
[2020-08-01 09:39] VITALS: BP 133/74
[2020-08-01] MEDS: FUROSEMIDE 20 MG TABLET PO SCH (09:39)
[2020-08-01] MEDS: DILTIAZEM HCL CD 120 MG CAP.SR.24H PO SCH (09:39)
[2020-08-01] MEDS: DOCUSATE SODIUM 100 MG CAPSULE PO SCH (09:39)
[2020-08-01] MEDS: PANTOPRAZOLE SODIUM 40 MG TABLET.DR PO SCH (09:39)
[2020-08-01] MEDS: MULTIVITAMINS,THERAPEUTIC TABLET PO SCH (09:39)
[2020-08-01] MEDS: GABAPENTIN 100 MG CAPSULE PO SCH ×2 (09:39→12:27)
[2020-08-01] MEDS: POTASSIUM CHLORIDE 20 MEQ TAB.PRT.SR PO SCH (09:39)
[2020-08-01] MEDS: LEVOTHYROXINE SODIUM 200 MCG TABLET PO SCH (09:40)
[2020-08-01] MEDS: APIXABAN 5 MG TABLET PO SCH (09:43)
[2020-08-01] MEDS: AMIODARONE HCL 200 MG TABLET PO SCH (09:49)
[2020-08-01] MEDS: HYDROGEN PEROXIDE 3% 118 ML BOTTLE TOP SCH (09:50)
[2020-08-01] MEDS: NEOMY/BACITRAC/POLYMI OINT 28.35 GM TUBE TOP SCH (09:50)
--- NOTE | 2020-08-01 11:32 | NUR ---
Patient AOX4, sitting in chair in stable condition. Patient verbalize that he is thankful for the care given. Patient last therapy today with good effect. Patient for discharge around 1pm. Patient discharge prescription given and verbalize understanding. Patient back sutures picture in the chart. Patient aware of FF UP surgeon consult at 230pm. 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 no complaint of pain/discomfort. will continue monitor
--- NOTE | 2020-08-01 13:23 | NUR ---
Patient discharge at 1pm to home in stable condition. 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 Discharge summary and prescription given to patient. Verbalize understanding. Patient is thankful for the care given.
[2020-08-01] MEDS ORDERED: ATORVASTATIN 20 MG TABLET PO SCH (21:00)
== END 2020-08-01 13:00 | disposition home health service (06) | DRG 560 ==
PROVIDERS: ADMIT Physical Medicine & Rehabilitation Pain Medicine; ATTEND Physical Medicine & Rehabilitation Pain Medicine
DX: Z47.89 Encounter for other orthopedic aftercare (principal); D68.59 Other primary thrombophilia; G97.61 Postprocedural hematoma of a nervous system organ or structure following a nervous system procedure; I48.20 Chronic atrial fibrillation, unspecified; E78.5 Hyperlipidemia, unspecified; G47.30 Sleep apnea, unspecified; G89.29 Other chronic pain; I48.91 Unspecified atrial fibrillation; Z85.46 Personal history of malignant neoplasm of prostate; Z85.850 Personal history of malignant neoplasm of thyroid; I10 Essential (primary) hypertension; R53.1 Weakness; R53.81 Other malaise; D53.9 Nutritional anemia, unspecified; E03.9 Hypothyroidism, unspecified; I25.2 Old myocardial infarction; L89.159 Pressure ulcer of sacral region, unspecified stage; M06.9 Rheumatoid arthritis, unspecified; M19.90 Unspecified osteoarthritis, unspecified site; M48.061 Spinal stenosis, lumbar region without neurogenic claudication; Z79.01 Long term (current) use of anticoagulants; Z88.5 Allergy status to narcotic agent; Z88.8 Allergy status to other drugs, medicaments and biological substances
CPT/HCPCS: 36415; 82652; 83735; 84100; 84443; 85025; A4663; Q0163